=== PATIENT | female | born 1980 | race Caucasian/White ===

== ENCOUNTER 2023-11-14 09:25 | Day surgery (SDC) | payer MEDICARE, OTHER ==
[2023-11-13 11:36] VITALS: BMI 19.0
[2023-11-14] MEDS: LACTATED RINGERS 1,000 ML IV SCH (10:00)
[2023-11-14 10:52] VITALS: TEMP 98.1
[2023-11-14] MEDS ORDERED: PROPOFOL 10 MG/ML 20 ML VIAL IV ONE (10:54)
[2023-11-14] MEDS ORDERED: LIDOCAINE 1% INJ 10MG/ML (20 ML MDV) ONE (10:54)
--- NOTE | 2023-11-14 11:13 | P.OP ---
Date of Procedure: 11/14/23 Preoperative Diagnosis: malnutrition Postoperative Diagnosis: malnutrition Procedure(s) Performed: EGD with PEG tube placement Anesthesia: MAC Surgeon: Pantera Alejandre Pathology: none sent Condition: stable Disposition: PACU Description of Procedure: Next the gastroscope placed oropharynx passed in the esophagus and stomach. There is no evidence of any outlet obstruction. Stomach was insufflated with air. The light reflux seen the anterior abdominal wall. The abdomen was preppe d and draped usual fashion. The skin was incised. And the needles placed and stomach under direct visualization. The needle was snared. And the wires placed through the needle and the wire was snared and brought the oropharynx. The PEG tube was placed over top the wire brought down to the stomach. The PEG tube was secured. At the 3 cm pat. The one-piece bolster was used. Patient tolerated procedure well.
[2023-11-14 12:24] VITALS: BP 134/80; PULSE 60; RESP 16
== END 2023-11-14 12:41 ==
LOC: ORWHC2ENDO 09:25
PROVIDERS: ATTEND Surgery
DX: E46 Unspecified protein-calorie malnutrition (principal); Z79.899 Other long term (current) drug therapy
CPT/HCPCS: 81025; 43246; J2001; J2704; B4087

== ENCOUNTER 2024-05-02 08:06 | Emergency (ER) | payer MEDICARE, OTHER ==
[2024-05-02 08:19] VITALS: TEMP 98
--- NOTE | 2024-05-02 08:28 | ED ---
General Adult HPI - General Chief complaint: Recheck/Abnormal Lab/Rx Stated complaint: Peg tube issue Time Seen by Provider: 05/02/24 08:20 Source: EMS Mode of arrival: EMS Limitations: no limitations - History of Present Illness Initial comments: Dictation was produced using [employer] dictation software. please excuse any grammatical, word or spelling errors. Chief Complaint: 44-year-old female with concerns of malfunctioning PEG tube History of Present Illness: Patient is a 44-year-old female with debility. She had a PEG tube placed in November of this year. She is brought in by EMS from assisted living facility for concerns of PEG tube. There is some erosion seen at the connection sites on its external distal end. Patient has no complaints at this time. No other concerns by EMS The ROS documented in this emergency department record has been reviewed and confirmed by me. Those systems with pertinent positive or negative responses have been documented in the HPI. All other systems are other negative and/or noncontributory. - Related Data Home Medications Medication Instructions Recorded Confirmed Ensure 1 can PO BID 11/13/23 11/14/23 Ergocalciferol [Vitamin D2 (1250 1,250 mcg PO FR 11/13/23 11/14/23 Mcg = 87302 Iu)] Sennosides/Docusate Sodium [Senna 2 each PO HS 11/13/23 11/14/23 Plus 8.6-50 mg Softgel] polyethylene glycoL 3350 [Miralax] 17 gm PO DAILY 11/13/23 11/14/23 Allergies Allergy/AdvReac Type Severity Reaction Status Date / Time No Known Allergies Allergy Verified 05/02/24 08:19 Review of Systems ROS Statement: Those systems with pertinent positive or pertinent negative responses have been documented in the HPI. ROS Other: All systems not noted in ROS Statement are negative. Past Medical History Additional Past Medical History / Comment(s): CHARCOT JED TOOTH SYNDROME. VERY WEAK, NON AMBULATORY, DYSPHAGIA, CHRONIC CONSTIPATION, HAS IDC History of Any Multi-Drug Resistant Organisms: None Reported Past Surgical History: Unable to Obtain Additional Past Surgical History / Comment(s): NONE KNOWN TO STAFF Past Anesthesia/Blood Transfusion Reactions: No Reported Reaction Past Psychological History: No Psychological Hx Reported Smoking Status: Never smoker - Past Family History Mother Family Medical History: Cancer Additional Family Medical History / Comment(s): General Exam - General Exam Comments Initial Comments: General: Well-appearing, nontoxic, no acute distress. Head: Normocephalic, atraumatic Eyes: PERRLA, EOMI ENT: Airway patent Chest: Nonlabored breathing Skin: No visual rash, normal skin tone Neuro: Alert and oriented 3 Musculoskeletal: No gross abnormalities Abdomen: PEG tube intact with some erosions seen at the distal connection site Limitations: no limitations Course Vital Signs 05/02/24 08:11 Temperature 98 F Pulse Rate 76 Respiratory 17 Rate Blood Pressure 131/78 O2 Sat by Pulse 76 L Oximetry Medical Decision Making - Medical Decision Making Was pt. sent in by a medical professional or institution (, PA, MANAGER QUALITY COMPLIANCE, urgent care, hospital, or long-term...) When possible be specific @ -No Did you speak to anyone other than the patient for history (EMS, parent, family, police, friend...)? What history was obtained from this source @ -No Did you review nursing and triage notes (agree or disagree)? Why? @ -I reviewed and agree with nursing and triage notes Were old charts reviewed (outside hosp., previous admission, EMS record, old EKG, old radiological studies, urgent care reports/EKG's, long-term records)? Report findings @ -No old charts were reviewed Differential Diagnosis (chest pain, altered mental status, abdominal pain women, abdominal pain men, vaginal bleeding, musculoskeletal, weakness, fever, dyspnea, syncope, headache, dizziness, GI bleed, back pain, seizure, CVA, palpatations, mental health)? @ -PEG tube displacement, PEG tube complication, PEG tube malfunction EKG interpreted by me (3pts min.). @ -None done X-rays interpreted by me (1pt min.). @ -Pegogram confirms good function CT interpreted by me (1pt min.). @ -None done U/S interpreted by me (1pt. min.). @ -None done What testing was considered but not performed or refused? (CT, X-rays, U/S, labs)? Why? @ -None What meds were considered but not given or refused? Why? @ -None Was smoking cessation discussed for >3mins.? @ -No Were there social determinants of health that impacted care today? How? (Homelessness, low income, unemployed, alcoholism, drug addiction, transportation, low edu. Level, literacy, decrease access to med. care, penitentiary, rehab)? @ -No Was there de-escalation of care discussed even if they declined (Discuss DNR or withdrawal of care, Hospice)? DNR status @ -No What co-morbidities impacted this encounter? (DM, HTN, Smoking, COPD, CAD, Cancer, CVA, ARF, Chemo, Hep., AIDS, mental health diagnosis, sleep apnea, morbid obesity)? @ -None Was patient admitted / discharged? Hospital course, mention meds given and route, prescriptions, significant lab abnormalities, going to OR and other pertinent info. @ -44-year-old female presents to the emergency department for concerns of PEG tube issue. Vital signs stable. Patient well-appearing. Distal connector Was replaced. Abdominal x-ray shows well-functioning PEG tube. PEG tube flushes well. Patient discharged back to facility Did you discuss the management of the patient with other professionals (professionals i.e. , PA, MANAGER QUALITY COMPLIANCE, lab, RT, psych nurse, mental health social worker, academic affairs assistant, teacher, air defense control officer, case checker)? Give summary @ -No Was critical care preformed (if so, how long)? @ -No Undiagnosed new problem with uncertain prognosis? @ -No Drug Therapy requiring intensive monitoring for toxicity (Heparin, Nitro, I nsulin, Cardizem)? @ -No Were any procedures done? @ -No Diagnosis/symptom? Acute, or Chronic, or Acute on Chronic? Uncomplicated (without systemic symptoms) or Complicated (systemic symptoms)? @ -PEG tube issue Side effects of treatment? @ -No Exacerbation, Progression, or Severe Exacerbation? @ -No Poses a threat to life or bodily function? How? (Chest pain, USA, MT, pneumonia, PE, COPD, DKA, ARF, appy, cholecystitis, CVA, Diverticulitis, Homicidal, Suicidal, threat to staff... and all critical care pts) @ -No Disposition Clinical Impression: PEG tube malfunction Disposition: HOME SELF-CARE Condition: Good Is patient prescribed a controlled substance at d/c from ED?: No Referrals: Ruiz Antonio MD [Primary Care Provider] - 1-2 days Time of Disposition: 09:36
--- NOTE | 2024-05-02 10:38 | XR ---
Single view abdomen HISTORY: pegogram TECHNIQUE: Contrast was injected to the patient's feeding tube and a spot film of the abdomen was obt ained. Findings: There is contrast within the stomach and there is no evidence of extravasation. There is possibly mil d ileus. There are cholecystectomy clips in the right upper quadrant. The visualized lung bases are clear. IMPRESSION: Normal pegogram with no contrast extravasation from the stomach [facility], , 05/02/2024 10:36 AM
[2024-05-02 11:03] VITALS: BP 129/79; PULSE 79; RESP 18
== END 2024-05-02 11:03 | disposition home or self-care (01) ==
LOC: EC 08:06
DX: K94.23 Gastrostomy malfunction (principal)
CPT/HCPCS: 74018; 99283

== ENCOUNTER 2024-11-29 11:21 | Emergency (ER) | payer MEDICARE, OTHER ==
[2024-11-29 11:41] VITALS: BP 119/77; PULSE 55; RESP 17; TEMP 98
--- NOTE | 2024-11-29 11:46 | ED ---
Recheck HPI - General Chief Complaint: Recheck/Abnormal Lab/Rx Stated Complaint: peg tube Time Seen by Provider: 11/29/24 11:35 Source: EMS, RN notes reviewed Mode of arrival: EMS Limitations: physical limitation - History of Present Illness Initial Comments: This is a 44-year-old female with history including Dmlkall-Dsqsu-Unbom syndrome presenting via EMS from [place] for PEG tube replacement. Informed by EMS that patient is having a leakage at the Becca site at the end of her PEG tube, stating PEG tube is otherwise patent. Denies patient having any personal symptoms/complaints herself and is otherwise behaving normally. Onset/Timin -: days(s) - Related Data Home Medications Medication Instructions Recorded Confirmed Ensure 1 can PO BID 11/13/23 11/14/23 Ergocalciferol [Vitamin D2 (1250 1,250 mcg PO FR 11/13/23 11/14/23 Mcg = 17342 Iu)] Sennosides/Docusate Sodium [Senna 2 each PO HS 11/13/23 11/14/23 Plus 8.6-50 mg Softgel] polyethylene glycoL 3350 [Miralax] 17 gm PO DAILY 11/13/23 11/14/23 Allergies Allergy/AdvReac Type Severity Reaction Status Date / Time No Known Allergies Allergy Verified 05/02/24 08:19 Review of Systems ROS Statement: Those systems with pertinent positive or pertinent negative responses have been documented in the HPI. ROS Other: All systems not noted in ROS Statement are negative. Past Medical History Additional Past Medical History / Comment(s): CHARCOT JED TOOTH SYNDROME. VERY WEAK, NON AMBULATORY, DYSPHAGIA, CHRONIC CONSTIPATION, HAS IDC History of Any Multi-Drug Resistant Organisms: None Reported Past Surgical History: Unable to Obtain Additional Past Surgical History / Comment(s): NONE KNOWN TO STAFF Past Anesthesia/Blood Transfusion Reactions: No Reported Reaction Past Psychological History: No Psychological Hx Reported Smoking Status: Never smoker - Past Family History Mother Family Medical History: Cancer Additional Family Medical History / Comment(s): General Exam General appearance: alert, in no apparent distress Head exam: Present: atraumatic, normocephalic, normal inspection Eye exam: Present: normal appearance, PERRL, EOMI. Absent: scleral icterus, conjunctival injection, periorbital swelling ENT exam: Present: normal exam, mucous membranes moist Neck exam: Present: normal inspection. Absent: tenderness, meningismus, lymphadenopathy Respiratory exam: Present: normal lung sounds bilaterally. Absent: respiratory distress, wheezes, rales, rhonchi, stridor, accessory muscle use Cardiovascular Exam: Present: regular rate, normal rhythm, normal heart sounds. Absent: systolic murmur, diastolic murmur, rubs, gallop, clicks GI/Abdominal exam: Present: soft, normal bowel sounds, other (No surrounding erythema, bleeding, discharge around ostomy site of PEG tube. Both ports of Y site appear patent without leakage near port or ostomy site, even with pinching near ostomy site.). Absent: distended, tenderness, guarding, rebound, rigid Extremities exam: Present: normal inspection, full ROM, normal capillary refill. Absent: tenderness, pedal edema, joint swelling, calf tenderness Back exam: Present: normal inspection Neurological exam: Present: alert, oriented X3, CN II-XII intact Psychiatric exam: Present: normal affect, normal mood Skin exam: Present: warm, dry, intact, normal color. Absent: rash Course Vital Signs 11/29/24 11:39 Temperature 98.0 F Pulse Rate 55 L Respiratory 17 Rate Blood Pressure 119/77 O2 Sat by Pulse 98 Oximetry Medical Decision Making - Medical Decision Making Was pt. sent in by a medical professional or institution (RACHAEL Cross, SANITATION MANAGER, urgent care, hospital, or residential...) When possible be specific @ -[place] Did you speak to anyone other than the patient for history (EMS, parent, family, police, friend...)? What history was obtained from this source @ -No Did you review nursing and triage notes (agree or disagree)? Why? @ -I reviewed and agree with nursing and triage notes Were old charts reviewed (outside hosp., previous admission, EMS record, old EKG, old radiological studies, urgent care reports/EKG's, residential records)? Report findings @ -No old charts were reviewed Differential Diagnosis (chest pain, altered mental status, abdominal pain women, abdominal pain men, vaginal bleeding, weakness, fever, dyspnea, syncope, headache, dizziness, GI bleed, back pain, seizure, CVA, palpatations, mental health, musculoskeletal)? @ -Differential Abdominal Pain Women: Appendicitis, Cholecystitis, diverticulosis, ischemic bowel, pancreatitis, hepatitis, UTI, gastroenteritis, AAA, incarcerated hernia, bowel obstruction, constipation, inflammatory bowel, hepatitis, peptic ulcer disease, splenic infarction, perforated viscus, vulvitis, ovarian torsion, PID, kidney stone, placenta abruption, this is not meant to be an all-inclusive list EKG interpreted by me (3pts min.). @ -Not done X-rays interpreted by me (1pt min.). @ -None done CT interpreted by me (1pt min.). @ -None done U/S interpreted by me (1pt. min.). @ -None done What testing was considered but not performed or refused? (CT, X-rays, U/S, labs)? Why? @ -None What meds were considered but not given or refused? Why? @ -None Did you discuss the management of the patient with other professionals ( professionals i.e. , PA, SANITATION MANAGER, lab, RT, psych nurse, geriatric social worker, vfx artist, teacher, custody officer, case management social worker)? Give summary @ -No Was smoking cessation discussed for >3mins.? @ -No Was critical care preformed (if so, how long)? @ -No Were there social determinants of health that impacted care today? How? (Homelessness, low income, unemployed, alcoholism, drug addiction, transportation, low edu. Level, literacy, decrease access to med. care, custodial, rehab)? @ -No Was there de-escalation of care discussed even if they declined (Discuss DNR or withdrawal of care, Hospice)? DNR status @ -No What co-morbidities impacted this encounter? (DM, HTN, Smoking, COPD, CAD, Cancer, CVA, ARF, Chemo, Hep., AIDS, mental health diagnosis, sleep apnea, morbid obesity)? @ -None Was patient admitted / discharged? Hospital course, mention meds given and route, prescriptions, significant lab abnormalities, going to OR and other pertinent info. @ -RN confirmed patency of both Y site ports without leakage, even with pinching near ostomy site. No issues discovered with PEG tube. Transportation arranged to have patient return to [place]. Discussed patient with Dr. Wei. Undiagnosed new problem with uncertain prognosis? @ -No Drug Therapy requiring intensive monitoring for toxicity (Heparin, Nitro, Insulin, Cardizem)? @ -No Were any procedures done? @ -RN confirmed patency of both Y site ports without leakage, even with pinching near ostomy site. No issues discovered with PEG tube Diagnosis/symptom? @ -No PEG tube abnormality Acute, or Chronic, or Acute on Chronic? @ -Acute Uncomplicated (without systemic symptoms) or Complicated (systemic symptoms)? @ -Uncomplicated Side effects of treatment? @ -No Exacerbation, Progression, or Severe Exacerbation? @ -No Poses a threat to life or bodily function? How? (Chest pain, USA, [place], pneumonia, PE, COPD, DKA, ARF, appy, cholecystitis, CVA, Diverticulitis, Homicidal, Suicidal, threat to staff... and all critical care pts) @ -No Disposition Clinical Impression: No abnormality detected on examination Disposition: HOME SELF-CARE Condition: Good Instructions (If sedation given, give patient instructions): How to Use and Care for Your PEG Tube (ED) Additional Instructions: Ensure regular flushing of PEG tube after use to maintain patency. Follow-up with PCP for any recurrent issues. Is patient prescribed a controlled substance at d/c from ED?: No Referrals: Ruiz Romo, CELIA [Family Provider] - 1-2 days Time of Disposition: 11:58
== END 2024-11-29 14:29 | disposition home or self-care (01) ==
LOC: EEVIPCON 11:21 → EC 11:21
DX: Z43.1 Encounter for attention to gastrostomy (principal)
CPT/HCPCS: 99283